=== PATIENT | male | born 1985 | race Caucasian/White ===

== ENCOUNTER 2017-08-15 08:42 | Emergency (ER) | payer OTHER, MEDICAID, SELFPAY ==
[2017-08-15 09:07] VITALS: BP 145/81; PULSE 50; RESP 14; TEMP 36.9; O2SAT 99; BMI 44.7
[2017-08-15 10:16] LABS: Add Manual Diff / Slide Review NO; Basophils Percent Auto 0.5 % (0-2); Eosinophils Percent Auto 6.4 % (2-4); Hemoglobin 12.7 g/dL (13.5-17.5); Mean Corpuscular HGB Conc 34.3 % (30-36); Mean Corpuscular Hemoglobin 27.8 PG (26-34); Mean Corpuscular Volume 81.1 fL (80-100); Monocytes Percent Auto 11.7 % (3-14); Neutrophils Absolute Auto 6700 /uL (3000-5900); Neutrophils Percent Auto 66.4 % (50-75); Platelet Count 211 X10^3/uL (150-400); Red Blood Cell Count 4.57 X10^6/uL (4.5-5.9); Red Cell Distribution Width 15.7 % (11.6-14.8); White Blood Cell Count 10.1 X10^3/uL (4.5-11.0)
[2017-08-15 10:21] LABS: INR 1.1 (0.9-1.3); Prothrombin Time 11.9 SECONDS (10.1-12.7)
[2017-08-15 10:28] LABS: Alanine Aminotransferase 91 IU/L (21-72); Albumin Globulin Ratio 1.3 (1.0-2.8); Alkaline Phosphatase 92 U/L (38-126); Aspartate Aminotransferase 106 IU/L (17-59); BUN Creatinine Ratio 21.7 (6-22); Bilirubin Total 0.5 mg/dL (0.2-1.3); C-Reactive Protein Quant 2.6 mg/dL (<1.0); Calcium 9.1 mg/dL (8.4-10.2); Estimated Glomerular Filt Rate > 60.0 mL/min (>60); Globulin 3.1 g/dL (1.7-4.1); Glucose 109 mg/dL (70-100); HEMOLYSIS < 15 (0-50); Potassium 4.1 mmol/L (3.4-5.1); Sodium 142 mmol/L (137-145); Total Protein 7.1 g/dL (6.3-8.2)
[2017-08-15 10:36] LABS: Erythrocyte Sedimentation Rate 44 MM/HR (0-15)
[2017-08-15 10:45] LABS: Procalcitonin < 0.05 ng/mL (<0.5)
--- NOTE | 2017-08-15 11:47 | ED.LOWEXIN ---
HPI - Extremity Injury (Lower) <Maximiliano Paige MD - Last Filed: 08/15/17 15:42> General Chief Complaint: Extremity Injury, Lower Stated Complaint: swelling in left big toe Time Seen by Provider: 08/15/17 08:51 Source: patient Mode of arrival: ambulatory Limitations: no limitations History of Present Illness HPI Narrative: 31M no sig pmhx presents for R big toe pain worsening since 2 days prior. Has had toe pain for months, and reports history of stepping barefoot on sharp things, but cannot recall specific trauma. Toe has become swollen red and painful in last 2 days. No fever at home. Not diabetic Related Data Home Medications Medication Instructions Recorded Confirmed citalopram 40 mg PO QHS 08/15/17 08/15/17 propranolol 40 mg PO BID 08/15/17 08/15/17 Previous Rx's Medication Instructions Recorded hydrocodone-acetaminophen [[place]] 1 tab PO Q4-6H PRN #10 tab 08/15/17 ibuprofen 800 mg PO Q8H PRN #30 tab 08/15/17 levofloxacin [Levaquin] 750 mg PO DAILY 10 Days tab 08/15/17 Allergies Allergy/AdvReac Type Severity Reaction Status Date / Time tramadol Allergy Mild VIOLENTLY Verified 08/15/17 13:07 ILL Review of Systems <Maximiliano Paige MD - Last Filed: 08/15/17 15:42> Review of Systems Exam <Maximiliano Paige MD - Last Filed: 08/15/17 15:42> Narrative Exam Narrative: Exam: Constitutional - Well appearing, well nourished, NAD EYES - PERRL, EOMI ENT - Moist oral mucosa Cardiovasuclar - Normal rate, rhythm, no murmurs, gallops, rubs Respiratory - Lungs CTA bilaterally, no increased respiratory effort, no accessory muscle use GI - Soft, non tender, non distended, no rebound MSK - No deformity, No CVA tenderness, No peripheral edema. Great toe on R symmetrically edematous and erythematous with fluctuance and white 3x3cm swelling to pad of toe. DP pulse 2+ Skin - No rash, no petechiae Neuro - A&Ox3, moves all extremities. No focal deficits Initial Vital Signs Initial Vital Signs: Vital Signs Temperature 98.4 F 08/15/17 09:07 Pulse Rate 50 L 08/15/17 09:07 Respiratory Rate 14 08/15/17 09:07 Blood Pressure 145/81 H 08/15/17 09:07 Pulse Oximetry 99 08/15/17 09:07 <Hermelinda Mclain PA-C - Last Filed: 08/15/17 13:27> Initial Vital Signs Initial Vital Signs: Vital Signs Temperature 98.4 F 08/15/17 09:07 Pulse Rate 50 L 08/15/17 09:07 Respiratory Rate 14 08/15/17 09:07 Blood Pressure 145/81 H 08/15/17 09:07 Pulse Oximetry 99 08/15/17 09:07 <Hermelinda Mclain PA-C - Last Filed: 08/15/17 13:27> Abscess I/D Site: foot Side (if applicable): left Course <Maximiliano Paige MD - Last Filed: 08/15/17 15:42> Hospital Course: After review of patient's history and exam with Dr. Paige, the left great toe was cleaned with alcohol, anesthetized with 6 cc 1% lidocaine plain via digital block in the usual fashion. The overlying callus was pared down, then a 0.8 cm incision made with a #11 blade into the underlying soft tissue. Malodorous pus drained, approximately 30 cc. Area explored with blunt hemostat and no additional pus drained. An additional 3cc 1% plain lidocaine was used for local anesthesia. Dressing applied Orders Ordered: ED Orders 08/15/17 10:05 C-Reactive Protein Quant Stat Complete Blood Count AUTO DIFF Stat Comprehensive Metabolic Panel Stat Erythrocyte Sedimentation Rate Stat Procalcitonin Stat Prothrombin Time INR Stat 08/15/17 11:46 XR toe LT min 2V Stat Discontinued Medications Hydrocodone Bitart/Acetaminophen ([place] 5/325) 2 tab PO NOW ONE Stop: 08/15/17 13:05 Last Admin: 08/15/17 13:20 Dose: 2 tab Ibuprofen (Advil) 800 mg PO NOW ONE Stop: 08/15/17 13:05 Last Admin: 08/15/17 13:21 Dose: 800 mg Vital Signs - 8 hr 08/15/17 09:07 08/15/17 13:40 Temperature 98.4 F Pulse Rate 50 L 57 L Respiratory Rate 14 18 Blood Pressure 145/81 H Blood Pressure [Right Arm] 165/96 H Pulse Oximetry 99 98 <Hermelinda Mclain PA-C - Last Filed: 08/15/17 13:27> Orders Ordered: ED Orders 08/15/17 10:05 C-Reactive Protein Quant Stat Complete Blood Count AUTO DIFF Stat Comprehensive Metabolic Panel Stat Erythrocyte Sedimentation Rate Stat Procalcitonin Stat Prothrombin Time INR Stat 08/15/17 11:46 XR toe LT min 2V Stat Discontinued Medications Hydrocodone Bitart/Acetaminophen ([place] 5/325) 2 tab PO NOW ONE Stop: 08/15/17 13:05 Last Admin: 08/15/17 13:20 Dose: 2 tab Ibuprofen (Advil) 800 mg PO NOW ONE Stop: 08/15/17 13:05 Last Admin: 08/15/17 13:21 Dose: 800 mg Vital Signs - 8 hr 08/15/17 09:07 08/15/17 13:40 Temperature 98.4 F Pulse Rate 50 L 57 L Respiratory Rate 14 18 Blood Pressure 145/81 H Blood Pressure [Right Arm] 165/96 H Pulse Oximetry 99 98 MDM - Extremity Injury (Lower) <Maximiliano Paige MD - Last Filed: 08/15/17 15:42> Lab Data Result diagrams: 08/15/17 10:05 08/15/17 10:05 Lab Results 08/15/17 08/15/17 08/15/17 Range/Units 10:05 10:05 10:05 WBC 10.1 (4.5-11.0) X10^3/uL RBC 4.57 (4.5-5.9) X10^6/uL Hgb 12.7 L (13.5-17.5) g/dL Hct 37.0 L (41-53) % MCV 81.1 (80-100) fL MCH 27.8 (26-34) PG MCHC 34.3 (30-36) % RDW 15.7 H (11.6-14.8) % Plt Count 211 (150-400) X10^3/uL Neut % (Auto) 66.4 (50-75) % Lymph % (Auto) 15.0 L (25-40) % Norton % (Auto) 11.7 (3-14) % Eos % (Auto) 6.4 H (2-4) % Baso % (Auto) 0.5 (0-2) % Neut # (Auto) 6700 H (5113-8059) /uL ESR 44 H (0-15) MM/HR PT 11.9 (10.1-12.7) SECONDS INR 1.1 (0.9-1.3) Sodium (137-145) mmol/L Potassium (3.4-5.1) mmol/L Chloride (98-107) mmol/L Carbon Dioxide (22-32) mmol/L BUN (9-20) mg/dL Creatinine (0.66-1.25) mg/dL Estimated GFR (>60) mL/min BUN/Creatinine Ratio (6-22) Glucose (70-100) mg/dL Calcium (8.4-10.2) mg/dL Total Bilirubin (0.2-1.3) mg/dL AST (17-59) IU/L ALT (21-72) IU/L Alkaline Phosphatase (38-126) U/L C-Reactive Protein (<1.0) mg/dL Total Protein (6.3-8.2) g/dL Albumin (3.5-5.0) g/dL Globulin (1.7-4.1) g/dL Albumin/Globulin Ratio (1.0-2.8) Procalcitonin < 0.05 (<0.5) ng/mL // Range/Units 10:05 WBC (4.5-11.0) X10^3/uL RBC (4.5-5.9) X10^6/uL Hgb (13.5-17.5) g/dL Hct (41-53) % MCV (80-100) fL MCH (26-34) PG MCHC (30-36) % RDW (11.6-14.8) % Plt Count (150-400) X10^3/uL Neut % (Auto) (50-75) % Lymph % (Auto) (25-40) % Norton % (Auto) (3-14) % Eos % (Auto) (2-4) % Baso % (Auto) (0-2) % Neut # (Auto) (2713-3859) /uL ESR (0-15) MM/HR PT (10.1-12.7) SECONDS INR (0.9-1.3) Sodium 142 (137-145) mmol/L Potassium 4.1 (3.4-5.1) mmol/L Chloride 103.0 (98-107) mmol/L Carbon Dioxide 29.0 (22-32) mmol/L BUN 13.0 (9-20) mg/dL Creatinine 0.60 L (0.66-1.25) mg/dL Estimated GFR > 60.0 (>60) mL/min BUN/Creatinine Ratio 21.7 (6-22) Glucose 109 H (70-100) mg/dL Calcium 9.1 (8.4-10.2) mg/dL Total Bilirubin 0.5 (0.2-1.3) mg/dL AST 106 H (17-59) IU/L ALT 91 H (21-72) IU/L Alkaline Phosphatase 92 (38-126) U/L C-Reactive Protein 2.6 H (<1.0) mg/dL Total Protein 7.1 (6.3-8.2) g/dL Albumin 4.0 (3.5-5.0) g/dL Globulin 3.1 (1.7-4.1) g/dL Albumin/Globulin Ratio 1.3 (1.0-2.8) Procalcitonin (<0.5) ng/mL Imaging Data Foot: Radiologist's impression: Patient: Miki Garcia [facility]#: [id number] : 1985Acct:[id number] Age/Sex: 31 / MDate of Service: 08/15/17 Loc: Accession Number: [id number] Procedure: XR toe LT min 2V Ordering Provider: Maximiliano Paige M.D. PROCEDURE: XR TOE LT MIN 2V INDICATIONS: Great toe infection TECHNIQUE: 3 views of the great toe acquired. COMPARISON: None. FINDINGS: Bones: No fractures or dislocations. No discrete bony erosions. There are hypertrophic changes medially at the 1st interphalangeal joint. Nonspecific periosteal thickening demonstrated within the 1st distal phalanx. There is mild narrowing of the 1st interphalangeal joint medially. Soft tissues: There is focal soft tissue swelling medial to the 1st metatarsophalangeal joint. IMPRESSION: 1. 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 2. Overlying medial soft tissue swelling at the 1st metatarsophalangeal joint without evidence of underlying bony erosions. Mild periosteal thickening in the 1st distal phalanx is nonspecific and reflect sequela of prior trauma but if there is persistent clinical suspicion for osteomyelitis, recommend further evaluation with MRI. Dictated by: Edson Ayala M.D. on 08/15/2017 at 12:32 Approved by: Edson Ayala M.D. on 08/15/2017 at 12:35 [facility] Narrative Medical decision making narrative: Patient has signficant abscess on great toe. ERYN Mclain performed I&D as described above. XR reviewed - no definite osteomyelitis noted. Patient is not febrile, or otherwise immunocompromised. Plan is for outpatient management of infection with follow up. Patient may need follow up MRI if infection does not resolve. Stable for discharge. <Hermelinda Mclain PA-C - Last Filed: 08/15/17 13:27> Lab Data Lab Results 08/15/17 08/15/17 08/15/17 Range/Units 10:05 10:05 10:05 WBC 10.1 (4.5-11.0) X10^3/uL RBC 4.57 (4.5-5.9) X10^6/uL Hgb 12.7 L (13.5-17.5) g/dL Hct 37.0 L (41-53) % MCV 81.1 (80-100) fL MCH 27.8 (26-34) PG MCHC 34.3 (30-36) % RDW 15.7 H (11.6-14.8) % Plt Count 211 (150-400) X10^3/uL Neut % (Auto) 66.4 (50-75) % Lymph % (Auto) 15.0 L (25-40) % Norton % (Auto) 11.7 (3-14) % Eos % (Auto) 6.4 H (2-4) % Baso % (Auto) 0.5 (0-2) % Neut # (Auto) 6700 H (0509-9552) /uL ESR 44 H (0-15) MM/HR PT 11.9 (10.1-12.7) SECONDS INR 1.1 (0.9-1.3) Sodium (137-145) mmol/L Potassium (3.4-5.1) mmol/L Chloride (98-107) mmol/L Carbon Dioxide (22-32) mmol/L BUN (9-20) mg/dL Creatinine (0.66-1.25) mg/dL Estimated GFR (>60) mL/min BUN/Creatinine Ratio (6-22) Glucose (70-100) mg/dL Calcium (8.4-10.2) mg/dL Total Bilirubin (0.2-1.3) mg/dL AST (17-59) IU/L ALT (21-72) IU/L Alkaline Phosphatase (38-126) U/L C-Reactive Protein (<1.0) mg/dL Total Protein (6.3-8.2) g/dL Albumin (3.5-5.0) g/dL Globulin (1.7-4.1) g/dL Albumin/Globulin Ratio (1.0-2.8) Procalcitonin < 0.05 (<0.5) ng/mL 05// Range/Units 10:05 WBC (4.5-11.0) X10^3/uL RBC (4.5-5.9) X10^6/uL Hgb (13.5-17.5) g/dL Hct (41-53) % MCV (80-100) fL MCH (26-34) PG MCHC (30-36) % RDW (11.6-14.8) % Plt Count (150-400) X10^3/uL Neut % (Auto) (50-75) % Lymph % (Auto) (25-40) % Norton % (Auto) (3-14) % Eos % (Auto) (2-4) % Baso % (Auto) (0-2) % Neut # (Auto) (2572-0809) /uL ESR (0-15) MM/HR PT (10.1-12.7) SECONDS INR (0.9-1.3) Sodium 142 (137-145) mmol/L Potassium 4.1 (3.4-5.1) mmol/L Chloride 103.0 (98-107) mmol/L Carbon Dioxide 29.0 (22-32) mmol/L BUN 13.0 (9-20) mg/dL Creatinine 0.60 L (0.66-1.25) mg/dL Estimated GFR > 60.0 (>60) mL/min BUN/Creatinine Ratio 21.7 (6-22) Glucose 109 H (70-100) mg/dL Calcium 9.1 (8.4-10.2) mg/dL Total Bilirubin 0.5 (0.2-1.3) mg/dL AST 106 H (17-59) IU/L ALT 91 H (21-72) IU/L Alkaline Phosphatase 92 (38-126) U/L C-Reactive Protein 2.6 H (<1.0) mg/dL Total Protein 7.1 (6.3-8.2) g/dL Albumin 4.0 (3.5-5.0) g/dL Globulin 3.1 (1.7-4.1) g/dL Albumin/Globulin Ratio 1.3 (1.0-2.8) Procalcitonin (<0.5) ng/mL Discharge Plan Departure Patient Disposition: Home, Self-Care Clinical Impression: Abscess of great toe of left foot Discharge Date/Time: 08/15/17 13:45 Interventions: ED Discharge Assessment Last Done: 08/15/17 13:45 Instructions: DI for Skin Abscess Activity Restrictions/Additional Instructions: This is a severe infection on your toe, and as we talked about, if you have any acutely worsening symptoms or new symptoms such as fever over the weekend you need to get to the closest emergency room. There does not appear to be any bone involvement on your x-ray, however given the longevity of UR infection this is a concern as well and you need close follow-up. Start the antibiotic as soon as you pick it up (I have given you a 10 day supply but you may need a longer course). We want to treat this while we are waiting for wound cultures to come back. Please call your PCP Thursday to arrange for this. It may be helpful for you to see a instrument specialist as well if your PCP thinks needed. Prescriptions: New ibuprofen 800 mg tablet 800 mg PO Q8H PRN (Reason: pain) Qty: 30 RF: 0 hydrocodone-acetaminophen [[place]] 5-325 mg tablet 1 tab PO Q4-6H PRN (Reason: foot pain) Qty: 10 RF: 0 levofloxacin [Levaquin] 750 mg tablet 750 mg PO DAILY 10 Days RF: 0 No Action propranolol 80 mg tablet 40 mg PO BID RF: 0 citalopram 40 mg tablet 40 mg PO QHS RF: 0 Referrals: Milton Ortega [Other]
--- NOTE | 2017-08-15 11:50 | ED_ITS ---
HPI - Extremity Injury (Lower) <Maximiliano Paige MD - Last Filed: 08/15/17 15:42> General Chief Complaint: Extremity Injury, Lower Stated Complaint: swelling in left big toe Time Seen by Provider: 08/15/17 08:51 Source: patient Mode of arrival: ambulatory Limitations: no limitations History of Present Illness HPI Narrative: 31M no sig pmhx presents for R big toe pain worsening since 2 days prior. Has had toe pain for months, and reports history of stepping barefoot on sharp things, but cannot recall specific trauma. Toe has become swollen red and painful in last 2 days. No fever at home. Not diabetic Related Data Home Medications Medication Instructions Recorded Confirmed citalopram 40 mg PO QHS 08/15/17 08/15/17 propranolol 40 mg PO BID 08/15/17 08/15/17 Previous Rx's Medication Instructions Recorded hydrocodone-acetaminophen [[place]] 1 tab PO Q4-6H PRN #10 tab 08/15/17 ibuprofen 800 mg PO Q8H PRN #30 tab 08/15/17 levofloxacin [Levaquin] 750 mg PO DAILY 10 Days tab 08/15/17 Allergies Allergy/AdvReac Type Severity Reaction Status Date / Time tramadol Allergy Mild VIOLENTLY Verified 08/15/17 13:07 ILL Review of Systems <Maximiliano Paige MD - Last Filed: 08/15/17 15:42> Review of Systems Exam <Maximiliano Paige MD - Last Filed: 08/15/17 15:42> Narrative Exam Narrative: Exam: Constitutional - Well appearing, well nourished, NAD EYES - PERRL, EOMI ENT - Moist oral mucosa Cardiovasuclar - Normal rate, rhythm, no murmurs, gallops, rubs Respiratory - Lungs CTA bilaterally, no increased respiratory effort, no accessory muscle use GI - Soft, non tender, non distended, no rebound MSK - No deformity, No CVA tenderness, No peripheral edema. Great toe on R symmetrically edematous and erythematous with fluctuance and white 3x3cm swelling to pad of toe. DP pulse 2+ Skin - No rash, no petechiae Neuro - A&Ox3, moves all extremities. No focal deficits Initial Vital Signs Initial Vital Signs: Vital Signs Temperature 98.4 F 08/15/17 09:07 Pulse Rate 50 L 08/15/17 09:07 Respiratory Rate 14 08/15/17 09:07 Blood Pressure 145/81 H 08/15/17 09:07 Pulse Oximetry 99 08/15/17 09:07 <Hermelinda Mclain PA-C - Last Filed: 08/15/17 13:27> Initial Vital Signs Initial Vital Signs: Vital Signs Temperature 98.4 F 08/15/17 09:07 Pulse Rate 50 L 08/15/17 09:07 Respiratory Rate 14 08/15/17 09:07 Blood Pressure 145/81 H 08/15/17 09:07 Pulse Oximetry 99 08/15/17 09:07 <Hermelinda Mclain PA-C - Last Filed: 08/15/17 13:27> Abscess I/D Site: foot Side (if applicable): left Course <Maximiliano Paige MD - Last Filed: 08/15/17 15:42> Hospital Course: After review of patient's history and exam with Dr. Paige, the left great toe was cleaned with alcohol, anesthetized with 6 cc 1% lidocaine plain via digital block in the usual fashion. The overlying callus was pared down, then a 0.8 cm incision made with a #11 blade into the underlying soft tissue. Malodorous pus drained, approximately 30 cc. Area explored with blunt hemostat and no additional pus drained. An additional 3cc 1% plain lidocaine was used for local anesthesia. Dressing applied Orders Ordered: ED Orders 08/15/17 10:05 C-Reactive Protein Quant Stat Complete Blood Count AUTO DIFF Stat Comprehensive Metabolic Panel Stat Erythrocyte Sedimentation Rate Stat Procalcitonin Stat Prothrombin Time INR Stat 08/15/17 11:46 XR toe LT min 2V Stat Discontinued Medications Hydrocodone Bitart/Acetaminophen ([place] 5/325) 2 tab PO NOW ONE Stop: 08/15/17 13:05 Last Admin: 08/15/17 13:20 Dose: 2 tab Ibuprofen (Advil) 800 mg PO NOW ONE Stop: 08/15/17 13:05 Last Admin: 08/15/17 13:21 Dose: 800 mg Vital Signs - 8 hr 08/15/17 09:07 08/15/17 13:40 Temperature 98.4 F Pulse Rate 50 L 57 L Respiratory Rate 14 18 Blood Pressure 145/81 H Blood Pressure [Right Arm] 165/96 H Pulse Oximetry 99 98 <Hermelinda Mclain PA-C - Last Filed: 08/15/17 13:27> Orders Ordered: ED Orders 08/15/17 10:05 C-Reactive Protein Quant Stat Complete Blood Count AUTO DIFF Stat Comprehensive Metabolic Panel Stat Erythrocyte Sedimentation Rate Stat Procalcitonin Stat Prothrombin Time INR Stat 08/15/17 11:46 XR toe LT min 2V Stat Discontinued Medications Hydrocodone Bitart/Acetaminophen ([place] 5/325) 2 tab PO NOW ONE Stop: 08/15/17 13:05 Last Admin: 08/15/17 13:20 Dose: 2 tab Ibuprofen (Advil) 800 mg PO NOW ONE Stop: 08/15/17 13:05 Last Admin: 08/15/17 13:21 Dose: 800 mg Vital Signs - 8 hr 08/15/17 09:07 08/15/17 13:40 Temperature 98.4 F Pulse Rate 50 L 57 L Respiratory Rate 14 18 Blood Pressure 145/81 H Blood Pressure [Right Arm] 165/96 H Pulse Oximetry 99 98 MDM - Extremity Injury (Lower) <Maximiliano Paige MD - Last Filed: 08/15/17 15:42> Lab Data Result diagrams: 08/15/17 10:05 08/15/17 10:05 Lab Results 08/15/17 08/15/17 08/15/17 Range/Units 10:05 10:05 10:05 WBC 10.1 (4.5-11.0) X10^3/uL RBC 4.57 (4.5-5.9) X10^6/uL Hgb 12.7 L (13.5-17.5) g/dL Hct 37.0 L (41-53) % MCV 81.1 (80-100) fL MCH 27.8 (26-34) PG MCHC 34.3 (30-36) % RDW 15.7 H (11.6-14.8) % Plt Count 211 (150-400) X10^3/uL Neut % (Auto) 66.4 (50-75) % Lymph % (Auto) 15.0 L (25-40) % [place] % (Auto) 11.7 (3-14) % Eos % (Auto) 6.4 H (2-4) % Baso % (Auto) 0.5 (0-2) % Neut # (Auto) 6700 H (2008-7024) /uL ESR 44 H (0-15) MM/HR PT 11.9 (10.1-12.7) SECONDS INR 1.1 (0.9-1.3) Sodium (137-145) mmol/L Potassium (3.4-5.1) mmol/L Chloride (98-107) mmol/L Carbon Dioxide (22-32) mmol/L BUN (9-20) mg/dL Creatinine (0.66-1.25) mg/dL Estimated GFR (>60) mL/min BUN/Creatinine Ratio (6-22) Glucose (70-100) mg/dL Calcium (8.4-10.2) mg/dL Total Bilirubin (0.2-1.3) mg/dL AST (17-59) IU/L ALT (21-72) IU/L Alkaline Phosphatase (38-126) U/L C-Reactive Protein (<1.0) mg/dL Total Protein (6.3-8.2) g/dL Albumin (3.5-5.0) g/dL Globulin (1.7-4.1) g/dL Albumin/Globulin Ratio (1.0-2.8) Procalcitonin < 0.05 (<0.5) ng/mL // Range/Units 10:05 WBC (4.5-11.0) X10^3/uL RBC (4.5-5.9) X10^6/uL Hgb (13.5-17.5) g/dL Hct (41-53) % MCV (80-100) fL MCH (26-34) PG MCHC (30-36) % RDW (11.6-14.8) % Plt Count (150-400) X10^3/uL Neut % (Auto) (50-75) % Lymph % (Auto) (25-40) % [place] % (Auto) (3-14) % Eos % (Auto) (2-4) % Baso % (Auto) (0-2) % Neut # (Auto) (5992-7727) /uL ESR (0-15) MM/HR PT (10.1-12.7) SECONDS INR (0.9-1.3) Sodium 142 (137-145) mmol/L Potassium 4.1 (3.4-5.1) mmol/L Chloride 103.0 (98-107) mmol/L Carbon Dioxide 29.0 (22-32) mmol/L BUN 13.0 (9-20) mg/dL Creatinine 0.60 L (0.66-1.25) mg/dL Estimated GFR > 60.0 (>60) mL/min BUN/Creatinine Ratio 21.7 (6-22) Glucose 109 H (70-100) mg/dL Calcium 9.1 (8.4-10.2) mg/dL Total Bilirubin 0.5 (0.2-1.3) mg/dL AST 106 H (17-59) IU/L ALT 91 H (21-72) IU/L Alkaline Phosphatase 92 (38-126) U/L C-Reactive Protein 2.6 H (<1.0) mg/dL Total Protein 7.1 (6.3-8.2) g/dL Albumin 4.0 (3.5-5.0) g/dL Globulin 3.1 (1.7-4.1) g/dL Albumin/Globulin Ratio 1.3 (1.0-2.8) Procalcitonin (<0.5) ng/mL Imaging Data Foot: Radiologist's impression: Patient: Miki Garcia [facility]#: [id number] : 1985Acct:[id number] Age/Sex: 31 / MDate of Service: 08/15/17 Loc: Accession Number: [id number] Procedure: XR toe LT min 2V Ordering Provider: Maximiliano Paige M.D. PROCEDURE: XR TOE LT MIN 2V INDICATIONS: Great toe infection TECHNIQUE: 3 views of the great toe acquired. COMPARISON: None. FINDINGS: Bones: No fractures or dislocations. No discrete bony erosions. There are hypertrophic changes medially at the 1st interphalangeal joint. Nonspecific periosteal thickening demonstrated within the 1st distal phalanx. There is mild narrowing of the 1st interphalangeal joint medially. Soft tissues: There is focal soft tissue swelling medial to the 1st metatarsophalangeal joint. IMPRESSION: 1. 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 2. Overlying medial soft tissue swelling at the 1st metatarsophalangeal joint without evidence of underlying bony erosions. Mild periosteal thickening in the 1st distal phalanx is nonspecific and reflect sequela of prior trauma but if there is persistent clinical suspicion for osteomyelitis, recommend further evaluation with MRI. Dictated by: Edson Ayala M.D. on 08/15/2017 at 12:32 Approved by: Edson Ayala M.D. on 08/15/2017 at 12:35 [facility] Narrative Medical decision making narrative: Patient has signficant abscess on great toe. ERYN Mclain performed I&D as described above. XR reviewed - no definite osteomyelitis noted. Patient is not febrile, or otherwise immunocompromised. Plan is for outpatient management of infection with follow up. Patient may need follow up MRI if infection does not resolve. Stable for discharge. <Hermelinda Mclain PA-C - Last Filed: 08/15/17 13:27> Lab Data Lab Results 08/15/17 08/15/17 08/15/17 Range/Units 10:05 10:05 10:05 WBC 10.1 (4.5-11.0) X10^3/uL RBC 4.57 (4.5-5.9) X10^6/uL Hgb 12.7 L (13.5-17.5) g/dL Hct 37.0 L (41-53) % MCV 81.1 (80-100) fL MCH 27.8 (26-34) PG MCHC 34.3 (30-36) % RDW 15.7 H (11.6-14.8) % Plt Count 211 (150-400) X10^3/uL Neut % (Auto) 66.4 (50-75) % Lymph % (Auto) 15.0 L (25-40) % [place] % (Auto) 11.7 (3-14) % Eos % (Auto) 6.4 H (2-4) % Baso % (Auto) 0.5 (0-2) % Neut # (Auto) 6700 H (8207-9152) /uL ESR 44 H (0-15) MM/HR PT 11.9 (10.1-12.7) SECONDS INR 1.1 (0.9-1.3) Sodium (137-145) mmol/L Potassium (3.4-5.1) mmol/L Chloride (98-107) mmol/L Carbon Dioxide (22-32) mmol/L BUN (9-20) mg/dL Creatinine (0.66-1.25) mg/dL Estimated GFR (>60) mL/min BUN/Creatinine Ratio (6-22) Glucose (70-100) mg/dL Calcium (8.4-10.2) mg/dL Total Bilirubin (0.2-1.3) mg/dL AST (17-59) IU/L ALT (21-72) IU/L Alkaline Phosphatase (38-126) U/L C-Reactive Protein (<1.0) mg/dL Total Protein (6.3-8.2) g/dL Albumin (3.5-5.0) g/dL Globulin (1.7-4.1) g/dL Albumin/Globulin Ratio (1.0-2.8) Procalcitonin < 0.05 (<0.5) ng/mL 05// Range/Units 10:05 WBC (4.5-11.0) X10^3/uL RBC (4.5-5.9) X10^6/uL Hgb (13.5-17.5) g/dL Hct (41-53) % MCV (80-100) fL MCH (26-34) PG MCHC (30-36) % RDW (11.6-14.8) % Plt Count (150-400) X10^3/uL Neut % (Auto) (50-75) % Lymph % (Auto) (25-40) % [place] % (Auto) (3-14) % Eos % (Auto) (2-4) % Baso % (Auto) (0-2) % Neut # (Auto) (4631-1547) /uL ESR (0-15) MM/HR PT (10.1-12.7) SECONDS INR (0.9-1.3) Sodium 142 (137-145) mmol/L Potassium 4.1 (3.4-5.1) mmol/L Chloride 103.0 (98-107) mmol/L Carbon Dioxide 29.0 (22-32) mmol/L BUN 13.0 (9-20) mg/dL Creatinine 0.60 L (0.66-1.25) mg/dL Estimated GFR > 60.0 (>60) mL/min BUN/Creatinine Ratio 21.7 (6-22) Glucose 109 H (70-100) mg/dL Calcium 9.1 (8.4-10.2) mg/dL Total Bilirubin 0.5 (0.2-1.3) mg/dL AST 106 H (17-59) IU/L ALT 91 H (21-72) IU/L Alkaline Phosphatase 92 (38-126) U/L C-Reactive Protein 2.6 H (<1.0) mg/dL Total Protein 7.1 (6.3-8.2) g/dL Albumin 4.0 (3.5-5.0) g/dL Globulin 3.1 (1.7-4.1) g/dL Albumin/Globulin Ratio 1.3 (1.0-2.8) Procalcitonin (<0.5) ng/mL Discharge Plan Departure Patient Disposition: Home, Self-Care Clinical Impression: Abscess of great toe of left foot Discharge Date/Time: 08/15/17 13:45 Interventions: ED Discharge Assessment Last Done: 08/15/17 13:45 Instructions: DI for Skin Abscess Activity Restrictions/Additional Instructions: This is a severe infection on your toe, and as we talked about, if you have any acutely worsening symptoms or new symptoms such as fever over the weekend you need to get to the closest emergency room. There does not appear to be any bone involvement on your x-ray, however given the longevity of UR infection this is a concern as well and you need close follow-up. Start the antibiotic as soon as you pick it up (I have given you a 10 day supply but you may need a longer course). We want to treat this while we are waiting for wound cultures to come back. Please call your PCP Thursday to arrange for this. It may be helpful for you to see a position classification specialist as well if your PCP thinks needed. Prescriptions: New ibuprofen 800 mg tablet 800 mg PO Q8H PRN (Reason: pain) Qty: 30 RF: 0 hydrocodone-acetaminophen [[place]] 5-325 mg tablet 1 tab PO Q4-6H PRN (Reason: foot pain) Qty: 10 RF: 0 levofloxacin [Levaquin] 750 mg tablet 750 mg PO DAILY 10 Days RF: 0 No Action propranolol 80 mg tablet 40 mg PO BID RF: 0 citalopram 40 mg tablet 40 mg PO QHS RF: 0 Referrals: Milton Ortega [Other]
[2017-08-15] MEDS: HYDROCODONE/ACET 5/325 TABLET 2 TAB PO (13:20)
[2017-08-15] MEDS: IBUPROFEN 400 MG TABLET 800 MG PO (13:21)
--- NOTE | 2017-08-15 13:38 | PC.NURSE ---
bacitracin, telfa, 4x4, and barbara dressing applied
[2017-08-15 13:40] VITALS: BP 165/96; PULSE 57; RESP 18; O2SAT 98
== END 2017-08-15 13:45 | disposition home or self-care (01) ==
PROVIDERS: Student in an Organized Health Care Education/Training Program; Emergency Provider Internal Medicine
DX: L02.612 Cutaneous abscess of left foot (principal)
CPT/HCPCS: 36415; 73660; 80053; 84145; 85025; 85610; 85651; 86140; 99283

== ENCOUNTER 2018-11-03 10:11 | Emergency (ER) | payer OTHER, MEDICAID, SELFPAY ==
--- NOTE | 2018-11-03 10:17 | DI.RAD.S_ITS ---
PROCEDURE: XR CHEST 1V INDICATIONS: chest pain TECHNIQUE: One view of the chest was acquired. COMPARISON: [facility], , CHEST 2 VIEW, 05/22/2013, 2:15. FINDINGS: Surgical changes and devices: None. Lungs and pleura: Lungs are clear. No pleural effusions or pneumothorax. Mediastinum: Mediastinal contours appear normal. Heart size is normal. Bones and chest wall: No suspicious bony lesions. Overlying soft tissues appear unremarkable. IMPRESSION: No acute cardiopulmonary abnormalities. Dictated by: Edwardo Jang M.D. on 11/03/2018 at 10:39 Approved by: Edwardo Jang M.D. on 11/03/2018 at 10:40
--- NOTE | 2018-11-03 10:18 | ED.CHESTPAIN ---
HPI - Chest Pain General Chief Complaint: Arrhythmia/Palpitations Stated Complaint: somethings wrong with my heart Time Seen by Provider: 11/03/18 10:16 Source: patient and old records reviewed Mode of arrival: ambulatory Limitations: no limitations History of Present Illness HPI narrative: Patient is a 33-year-old male with history of anxiety presenting with heart palpitations and chest pain. He says he was seen [facility] at [facility] twice for this this week he was given a prescription of Ativan he says he took all 10 pills and 1 day and did not feel like it was helping. He takes propranolol and duloxetine for anxiety. He has appointment with his PCP tomorrow. He is not sure what really bring these on. But he feels like his heart is skipping a beat. he denies any dizziness or lightheadedness. MD complaint: chest pain Duration: constant Related Data Home Medications Medication Instructions Recorded Confirmed propranolol 40 mg PO BID 08/15/17 11/03/18 clonazepam 0.5 mg PO PRN PRN 11/03/18 11/03/18 duloxetine 30 mg PO QPM 11/03/18 11/03/18 duloxetine 60 mg PO QAM 11/03/18 11/03/18 Allergies Allergy/AdvReac Type Severity Reaction Status Date / Time tramadol Allergy Mild VIOLENTLY Verified 08/15/17 13:07 ILL Review of Systems Review of Systems GENERAL: Denies chills, fatigue, malaise, fever, sweats, travel HEENT: Denies sinus pain, ear pain, sore throat, difficulty swallowing, neck pain RESPIRATORY: Denies dyspnea, cough, wheezing, hemoptysis, sputum. CARDIOVASCULAR: See HPI GASTROINTESTINAL: Denies nausea, vomiting, abdominal pain, diarrhea, constipation, melena. : Denies dysuria, frequency, incontinence, hematuria, urinary retention, flank pain. MUSCULOSKELETAL: Denies weakness, joint pain, or bony pain SKIN: No rash, no erythema, no pruritus NEUROLOGIC: Denies weakness, dizziness, headache, numbness, change in speech, confusion PSYCHIATRIC: No concerning psychosocial issues. 12 point review of systems is negative except for those stated above and HPI [facility] Medical History (Updated 11/03/18 @ 18:10 by Arlyn Kay DO) Anxiety (Acute) Depression (Acute) PTSD (post-traumatic stress disorder) (Acute) Social History Smoking Status: Current every day smoker Social History Smoking Status: Current every day smoker Exam Initial Vital Signs Initial Vital Signs: Vital Signs Temperature 98.7 F 11/03/18 10:28 Pulse Rate 65 11/03/18 10:28 Respiratory Rate 18 11/03/18 10:28 Blood Pressure 139/73 11/03/18 10:28 Pulse Oximetry 100 11/03/18 10:28 GENERAL: Overweight male anxious HEENT: Head atraumatic,EOMI, pupils reactive, face symmetric CARDIOVASCULAR: Regular rate and rhythm without murmurs, rubs or gallops. RESPIRATORY: Breath sounds equal bilaterally, no wheezes rales or rhonchi. ABDOMEN: Soft, nontender. Normoactive bowel sounds all 4 quadrants. No guarding or rebound. : No CVA tenderness EXTREMITIES: Normal range of motion, no clubbing or edema. Neurovascularly intact. Regular pulse. NEUROLOGICAL: Alert and oriented x4.Normal gait and speech. Cranial nerves II through XII grossly intact. SKIN: Warm, dry, no laceration, no petechiae, no rashes or lesions. Course Orders Ordered: ED Orders 11/03/18 10:15 EKG-12 Lead Stat 11/03/18 10:17 XR chest 1V Stat 11/03/18 10:30 Complete Blood Count AUTO DIFF Stat Comprehensive Metabolic Panel Stat Lipase Stat Partial Thromboplastin Time Stat Prothrombin Time INR Stat Troponin & CK Cardiac Panel Stat 11/03/18 11:14 Urine Microscopic Stat 11/03/18 13:31 Creatine Kinase Stat Troponin I Stat Discontinued Medications Aspirin (Aspirin Chew) 324 mg PO NOW ONE Stop: 11/03/18 10:17 Last Admin: 11/03/18 10:44 Dose: 324 mg Sodium Chloride (Normal Saline 0.9%) 1,000 mls @ 1,000 mls/hr IV BOLUS ONE Stop: 11/03/18 12:06 Last Infusion: 11/03/18 13:44 Dose: 0 mls/hr Admin: 11/03/18 11:55 Dose: 1,000 mls/hr Vital Signs - 8 hr 11/03/18 10:28 11/03/18 11:00 11/03/18 12:00 Temperature 98.7 F Pulse Rate 65 57 L 57 L Respiratory Rate 18 Blood Pressure 139/73 Blood Pressure [Right Arm] 127/82 145/80 H Pulse Oximetry 100 99 99 11/03/18 13:00 11/03/18 13:32 11/03/18 14:01 Temperature Pulse Rate 56 L 56 L 60 Respiratory Rate 14 16 Blood Pressure Blood Pressure [Right Arm] 136/78 140/76 129/67 Pulse Oximetry 99 100 100 MDM - Chest Pain Lab Data Attestation: I reviewed the patient's lab results. Result diagrams: 11/03/18 10:30 11/03/18 10:30 Lab Results 11/03/18 11/03/18 11/03/18 Range/Units 10:30 10:30 10:30 WBC 15.8 H (4.5-11.0) X10^3/uL RBC 5.08 (4.5-5.9) X10^6/uL Hgb 14.5 (13.5-17.5) g/dL Hct 42.9 (41-53) % MCV 84.4 (80-100) fL MCH 28.5 (26-34) PG MCHC 33.8 (30-36) % RDW 13.9 (11.6-14.8) % Plt Count 272 (150-400) X10^3/uL Neut % (Auto) 73.6 (50-75) % Lymph % (Auto) 12.9 L (25-40) % [place] % (Auto) 8.1 (3-14) % Eos % (Auto) 4.4 H (2-4) % Baso % (Auto) 1.0 (0-2) % Neut # (Auto) 62939 H (7274-0998) /uL Lymph # (Auto) 2000 (3922-0376) /uL [place] # (Auto) 1300 H (0-900) /uL Eos # (Auto) 700 H (0-450) /uL Baso # (Auto) 200 H (0-100) /uL PT 10.9 (10.1-12.7) SECONDS INR 1.0 (0.9-1.3) APTT 37 H (26.4-36.2) SECONDS Sodium 139 (137-145) mmol/L Potassium 4.3 (3.4-5.1) mmol/L Chloride 102 (98-107) mmol/L Carbon Dioxide 26 (22-32) mmol/L BUN 15 (9-20) mg/dL Creatinine 0.70 (0.66-1.25) mg/dL Estimated GFR > 60.0 (>60) mL/min BUN/Creatinine Ratio 21.4 (6-22) Glucose 95 (70-100) mg/dL Calcium 9.9 (8.4-10.2) mg/dL Total Bilirubin 0.4 (0.2-1.3) mg/dL AST 51 (17-59) IU/L ALT 50 (21-72) IU/L Alkaline Phosphatase 74 (38-126) U/L Total Creatine Kinase 1248 H (55-170) U/L CK-MB (CK-2) 21.50 H (<2.37) ng/mL CK-MB (CK-2) Rel Index 1.7 (1.5-5.0) % Troponin I < 0.012 (0.01-0.034) ng/mL Total Protein 8.1 (6.3-8.2) g/dL Albumin 4.7 (3.5-5.0) g/dL Globulin 3.4 (1.7-4.1) g/dL Albumin/Globulin Ratio 1.4 (1.0-2.8) Lipase 101 (23-300) U/L Urine RBC (0-5/HPF) Urine WBC (0-5/HPF) Ur Squamous Epith Cells (0-5/HPF) Urine Bacteria (None) Ur Culture Indicated? 11/03/18 11/03/18 Range/Units 11:14 13:31 WBC (4.5-11.0) X10^3/uL RBC (4.5-5.9) X10^6/uL Hgb (13.5-17.5) g/dL Hct (41-53) % MCV (80-100) fL MCH (26-34) PG MCHC (30-36) % RDW (11.6-14.8) % Plt Count (150-400) X10^3/uL Neut % (Auto) (50-75) % Lymph % (Auto) (25-40) % [place] % (Auto) (3-14) % Eos % (Auto) (2-4) % Baso % (Auto) (0-2) % Neut # (Auto) (8672-5040) /uL Lymph # (Auto) (3080-9430) /uL [place] # (Auto) (0-900) /uL Eos # (Auto) (0-450) /uL Baso # (Auto) (0-100) /uL PT (10.1-12.7) SECONDS INR (0.9-1.3) APTT (26.4-36.2) SECONDS Sodium (137-145) mmol/L Potassium (3.4-5.1) mmol/L Chloride (98-107) mmol/L Carbon Dioxide (22-32) mmol/L BUN (9-20) mg/dL Creatinine (0.66-1.25) mg/dL Estimated GFR (>60) mL/min BUN/Creatinine Ratio (6-22) Glucose (70-100) mg/dL Calcium (8.4-10.2) mg/dL Total Bilirubin (0.2-1.3) mg/dL AST (17-59) IU/L ALT (21-72) IU/L Alkaline Phosphatase (38-126) U/L Total Creatine Kinase 1093 H (55-170) U/L CK-MB (CK-2) (<2.37) ng/mL CK-MB (CK-2) Rel Index (1.5-5.0) % Troponin I < 0.012 (0.01-0.034) ng/mL Total Protein (6.3-8.2) g/dL Albumin (3.5-5.0) g/dL Globulin (1.7-4.1) g/dL Albumin/Globulin Ratio (1.0-2.8) Lipase (23-300) U/L Urine RBC None seen (0-5/HPF) Urine WBC 0-1/hpf (0-5/HPF) Ur Squamous Epith Cells 0-1 /hpf (0-5/HPF) Urine Bacteria None seen (None) Ur Culture Indicated? Cult not indicated Urine Dip Bedside Urine Glucose Negative Bedside Urine Bilirubin - Negative Bedside Urine Ketone + 15 Urine Specific [place] 1.020 Bedside Urine Occult Blood - Negative Bedside Urine pH 6.5 Bedside Urine Protein +/- 15 Bedside Urine Urobilinogen +/- 1mg Bedside Urine Nitrite - Negative Bedside Urine Leukocytes - Negative Esterase ECG Data Attestation: I personally reviewed and interpreted this ECG as follows: Prior ECG tracings: not available for review MDM Narrative Medical decision making narrative: Patient's CPK noted to be slightly elevated at 1200. He states he has not have any muscle aches or body aches. He actually does not have any blood in his urine. He denies any excessive exercise he states he has been on the Keto diet for the last 4 months. Repeat troponin and CPK have improved. Patient has no symptoms of rhabdomyolysis. I recommend he increase his fluid intake and follow up with his PCP we scheduled to see tomorrow. Recommend long-term anxiety medication needs to be changed. Discharge Plan Departure Patient Disposition: Home Clinical Impression: Palpitations, Elevated CPK Discharge Date/Time: 11/03/18 14:27 Interventions: ED Discharge Assessment Last Done: 11/03/18 14:27 Instructions: DI for Palpitations Activity Restrictions/Additional Instructions: *You have been diagnosed with elevated CPK and palpitation *What to do: At this time You need to discuss with her PCP your duloxetine medication. This may need to be switched. You also have a mildly elevated CPK which is muscle breakdown. It has improved however I recommend to continue to increase her fluid intake to help flush it out of your system. *Continue to take medications as directed *Follow up with your primary care provider in 2-3 days *Return to ER if you should have increasing chest pain body a, weakness, dizziness, passing out [or] any new, worsening or concerning symptoms Prescriptions: No Action clonazepam 0.5 mg tablet 0.5 mg PO PRN PRN (Reason: Panic Attack(S)) RF: 0 duloxetine 30 mg capsule,delayed release(DR/EC) 60 mg PO QAM RF: 0 duloxetine 30 mg capsule,delayed release(DR/EC) 30 mg PO QPM RF: 0 propranolol 80 mg tablet 40 mg PO BID RF: 0
--- NOTE | 2018-11-03 10:22 | ED_ITS ---
HPI - Chest Pain General Chief Complaint: Arrhythmia/Palpitations Stated Complaint: somethings wrong with my heart Time Seen by Provider: 11/03/18 10:16 Source: patient and old records reviewed Mode of arrival: ambulatory Limitations: no limitations History of Present Illness HPI narrative: Patient is a 33-year-old male with history of anxiety presenting with heart palpitations and chest pain. He says he was seen over at [facility] twice for this this week he was given a prescription of Ativan he says he took all 10 pills and 1 day and did not feel like it was helping. He takes propranolol and duloxetine for anxiety. He has appointment with his PCP tomorrow. He is not sure what really bring these on. But he feels like his heart is skipping a beat. he denies any dizziness or lightheadedness. MD complaint: chest pain Duration: constant Related Data Home Medications Medication Instructions Recorded Confirmed propranolol 40 mg PO BID 08/15/17 11/03/18 clonazepam 0.5 mg PO PRN PRN 11/03/18 11/03/18 duloxetine 30 mg PO QPM 11/03/18 11/03/18 duloxetine 60 mg PO QAM 11/03/18 11/03/18 Allergies Allergy/AdvReac Type Severity Reaction Status Date / Time tramadol Allergy Mild VIOLENTLY Verified 08/15/17 13:07 ILL Review of Systems Review of Systems GENERAL: Denies chills, fatigue, malaise, fever, sweats, travel HEENT: Denies sinus pain, ear pain, sore throat, difficulty swallowing, neck pain RESPIRATORY: Denies dyspnea, cough, wheezing, hemoptysis, sputum. CARDIOVASCULAR: See HPI GASTROINTESTINAL: Denies nausea, vomiting, abdominal pain, diarrhea, const ipation, melena. : Denies dysuria, frequency, incontinence, hematuria, urinary retention, flank pain. MUSCULOSKELETAL: Denies weakness, joint pain, or bony pain SKIN: No rash, no erythema, no pruritus NEUROLOGIC: Denies weakness, dizziness, headache, numbness, change in speech, confusion PSYCHIATRIC: No concerning psychosocial issues. 12 point review of systems is negative except for those stated above and HPI [facility] Medical History (Updated 11/03/18 @ 18:10 by Arlyn Kay DO) Anxiety (Acute) Depression (Acute) PTSD (post-traumatic stress disorder) (Acute) Social History Smoking Status: Current every day smoker Social History Smoking Status: Current every day smoker Exam Initial Vital Signs Initial Vital Signs: Vital Signs Temperature 98.7 F 11/03/18 10:28 Pulse Rate 65 11/03/18 10:28 Respiratory Rate 18 11/03/18 10:28 Blood Pressure 139/73 11/03/18 10:28 Pulse Oximetry 100 11/03/18 10:28 GENERAL: Overweight male anxious HEENT: Head atraumatic,EOMI, pupils reactive, face symmetric CARDIOVASCULAR: Regular rate and rhythm without murmurs, rubs or gallops. RESPIRATORY: Breath sounds equal bilaterally, no wheezes rales or rhonchi. ABDOMEN: Soft, nontender. Normoactive bowel sounds all 4 quadrants. No guarding or rebound. : No CVA tenderness EXTREMITIES: Normal range of motion, no clubbing or edema. Neurovascularly intact. Regular pulse. NEUROLOGICAL: Alert and oriented x4.Normal gait and speech. Cranial nerves II through XII grossly intact. SKIN: Warm, dry, no laceration, no petechiae, no rashes or lesions. Course Orders Ordered: ED Orders 11/03/18 10:15 EKG-12 Lead Stat 11/03/18 10:17 XR chest 1V Stat 11/03/18 10:30 Complete Blood Count AUTO DIFF Stat Comprehensive Metabolic Panel Stat Lipase Stat Partial Thromboplastin Time Stat Prothrombin Time INR Stat Troponin & CK Cardiac Panel Stat 11/03/18 11:14 Urine Microscopic Stat 11/03/18 13:31 Creatine Kinase Stat Troponin I Stat Discontinued Medications Aspirin (Aspirin Chew) 324 mg PO NOW ONE Stop: 11/03/18 10:17 Last Admin: 11/03/18 10:44 Dose: 324 mg Sodium Chloride (Normal Saline 0.9%) 1,000 mls @ 1,000 mls/hr IV BOLUS ONE Stop: 11/03/18 12:06 Last Infusion: 11/03/18 13:44 Dose: 0 mls/hr Admin: 11/03/18 11:55 Dose: 1,000 mls/hr Vital Signs - 8 hr 11/03/18 10:28 11/03/18 11:00 11/03/18 12:00 Temperature 98.7 F Pulse Rate 65 57 L 57 L Respiratory Rate Blood Pressure 139/73 Blood Pressure [Right Arm] 127/82 145/80 H Pulse Oximetry 100 99 99 11/03/18 13:00 11/03/18 13:32 11/03/18 14:01 Temperature Pulse Rate 56 L 56 L 60 Respiratory Rate 14 16 Blood Pressure Blood Pressure [Right Arm] 136/78 140/76 129/67 Pulse Oximetry 99 100 100 MDM - Chest Pain Lab Data Attestation: I reviewed the patient's lab results. Result diagrams: 11/03/18 10:30 11/03/18 10:30 Lab Results 11/03/18 11/03/18 11/03/18 Range/Units 10:30 10:30 10:30 WBC 15.8 H (4.5-11.0) X10^3/uL RBC 5.08 (4.5-5.9) X10^6/uL Hgb 14.5 (13.5-17.5) g/dL Hct 42.9 (41-53) % MCV 84.4 (80-100) fL MCH 28.5 (26-34) PG MCHC 33.8 (30-36) % RDW 13.9 (11.6-14.8) % Plt Count 272 (150-400) X10^3/uL Neut % (Auto) 73.6 (50-75) % Lymph % (Auto) 12.9 L (25-40) % Cass % (Auto) 8.1 (3-14) % Eos % (Auto) 4.4 H (2-4) % Baso % (Auto) 1.0 (0-2) % Neut # (Auto) 78773 H (6940-8753) /uL Lymph # (Auto) 2000 (5610-6140) /uL Cass # (Auto) 1300 H (0-900) /uL Eos # (Auto) 700 H (0-450) /uL Baso # (Auto) 200 H (0-100) /uL PT 10.9 (10.1-12.7) SECONDS INR 1.0 (0.9-1.3) APTT 37 H (26.4-36.2) SECONDS Sodium 139 (137-145) mmol/L Potassium 4.3 (3.4-5.1) mmol/L Chloride 102 (98-107) mmol/L Carbon Dioxide 26 (22-32) mmol/L BUN 15 (9-20) mg/dL Creatinine 0.70 (0.66-1.25) mg/dL Estimated GFR > 60.0 (>60) mL/min BUN/Creatinine Ratio 21.4 (6-22) Glucose 95 (70-100) mg/dL Calcium 9.9 (8.4-10.2) mg/dL Total Bilirubin 0.4 (0.2-1.3) mg/dL AST 51 (17-59) IU/L ALT 50 (21-72) IU/L Alkaline Phosphatase 74 (38-126) U/L Total Creatine Kinase 1248 H (55-170) U/L CK-MB (CK-2) 21.50 H (<2.37) ng/mL CK-MB (CK-2) Rel Index 1.7 (1.5-5.0) % Troponin I < 0.012 (0.01-0.034) ng/mL Total Protein 8.1 (6.3-8.2) g/dL Albumin 4.7 (3.5-5.0) g/dL Globulin 3.4 (1.7-4.1) g/dL Albumin/Globulin Ratio 1.4 (1.0-2.8) Lipase 101 (23-300) U/L Urine RBC (0-5/HPF) Urine WBC (0-5/HPF) Ur Squamous Epith Cells (0-5/HPF) Urine Bacteria (None) Ur Culture Indicated? 11/03/18 11/03/18 Range/Units 11:14 13:31 WBC (4.5-11.0) X10^3/uL RBC (4.5-5.9) X10^6/uL Hgb (13.5-17.5) g/dL Hct (41-53) % MCV (80-100) fL MCH (26-34) PG MCHC (30-36) % RDW (11.6-14.8) % Plt Count (150-400) X10^3/uL Neut % (Auto) (50-75) % Lymph % (Auto) (25-40) % Cass % (Auto) (3-14) % Eos % (Auto) (2-4) % Baso % (Auto) (0-2) % Neut # (Auto) (4310-3132) /uL Lymph # (Auto) (6849-8559) /uL Cass # (Auto) (0-900) /uL Eos # (Auto) (0-450) /uL Baso # (Auto) (0-100) /uL PT (10.1-12.7) SECONDS INR (0.9-1.3) APTT (26.4-36.2) SECONDS Sodium (137-145) mmol/L Potassium (3.4-5.1) mmol/L Chloride (98-107) mmol/L Carbon Dioxide (22-32) mmol/L BUN (9-20) mg/dL Creatinine (0.66-1.25) mg/dL Estimated GFR (>60) mL/min BUN/Creatinine Ratio (6-22) Glucose (70-100) mg/dL Calcium (8.4-10.2) mg/dL Total Bilirubin (0.2-1.3) mg/dL AST (17-59) IU/L ALT (21-72) IU/L Alkaline Phosphatase (38-126) U/L Total Creatine Kinase 1093 H (55-170) U/L CK-MB (CK-2) (<2.37) ng/mL CK-MB (CK-2) Rel Index (1.5-5.0) % Troponin I < 0.012 (0.01-0.034) ng/mL Total Protein (6.3-8.2) g/dL Albumin (3.5-5.0) g/dL Globulin (1.7-4.1) g/dL Albumin/Globulin Ratio (1.0-2.8) Lipase (23-300) U/L Urine RBC None seen (0-5/HPF) Urine WBC 0-1/hpf (0-5/HPF) Ur Squamous Epith Cells 0-1 /hpf (0-5/HPF) Urine Bacteria None seen (None) Ur Culture Indicated? Cult not indicated Urine Dip Bedside Urine Glucose Negative Bedside Urine Bilirubin - Negative Bedside Urine Ketone + 15 Urine Specific [place] 1.020 Bedside Urine Occult Blood - Negative Bedside Urine pH 6.5 Bedside Urine Protein +/- 15 Bedside Urine Urobilinogen +/- 1mg Bedside Urine Nitrite - Negative Bedside Urine Leukocytes - Negative Esterase ECG Data Attestation: I personally reviewed and interpreted this ECG as follows: Prior ECG tracings: not available for review MDM Narrative Medical decision making narrative: Patient's CPK noted to be slightly elevated at 1200. He states he has not have any muscle aches or body aches. He actually does not have any blood in his urine. He denies any excessive exercise he states he has been on the Keto diet for the last 4 months. Repeat troponin and CPK have improved. Patient has no symptoms of rhabdomyolysis. I recommend he increase his fluid intake and follow up with his PCP we scheduled to see tomorrow. Recommend long-term anxiety medication needs to be changed. Discharge Plan Departure Patient Disposition: Home Clinical Impression: Palpitations, Elevated CPK Discharge Date/Time: 11/03/18 14:27 Interventions: ED Discharge Assessment Last Done: 11/03/18 14:27 Instructions: DI for Palpitations Activity Restrictions/Additional Instructions: *You have been diagnosed with elevated CPK and palpitation *What to do: At this time You need to discuss with her PCP your duloxetine medication. This may need to be switched. You also have a mildly elevated CPK which is muscle breakdown. It has improved however I recommend to continue to increase her fluid intake to help flush it out of your system. *Continue to take medications as directed *Follow up with your primary care provider in 2-3 days *Return to ER if you should have increasing chest pain body a, weakness, dizziness, passing out [or] any new, worsening or concerning symptoms Prescriptions: No Action clonazepam 0.5 mg tablet 0.5 mg PO PRN PRN (Reason: Panic Attack(S)) RF: 0 duloxetine 30 mg capsule,delayed release(DR/EC) 60 mg PO QAM RF: 0 duloxetine 30 mg capsule,delayed release(DR/EC) 30 mg PO QPM RF: 0 propranolol 80 mg tablet 40 mg PO BID RF: 0
[2018-11-03 10:28] VITALS: BP 139/73; PULSE 65; RESP 18; TEMP 37.1; O2SAT 100; BMI 40.6
[2018-11-03 10:44] LABS: Add Manual Diff / Slide Review NO; Basophils Absolute Auto 200 /uL (0-100); Eosinophils Absolute Auto 700 /uL (0-450); Eosinophils Percent Auto 4.4 % (2-4); Hematocrit 42.9 % (41-53); Hemoglobin 14.5 g/dL (13.5-17.5); Lymphocytes Absolute Auto 2000 /uL (1100-4500); Lymphocytes Percent Auto 12.9 % (25-40); Mean Corpuscular HGB Conc 33.8 % (30-36); Mean Corpuscular Hemoglobin 28.5 PG (26-34); Mean Corpuscular Volume 84.4 fL (80-100); Monocytes Absolute Auto 1300 /uL (0-900); Monocytes Percent Auto 8.1 % (3-14); Neutrophils Absolute Auto 11600 /uL (1500-7000); Neutrophils Percent Auto 73.6 % (50-75); Platelet Count 272 X10^3/uL (150-400); Red Blood Cell Count 5.08 X10^6/uL (4.5-5.9); Red Cell Distribution Width 13.9 % (11.6-14.8); White Blood Cell Count 15.8 X10^3/uL (4.5-11.0)
[2018-11-03] MEDS: ASPIRIN 81 MG TAB 324 MG PO (10:44)
[2018-11-03 10:52] LABS: Prothrombin Time 10.9 SECONDS (10.1-12.7)
[2018-11-03 10:55] LABS: PTT Partial Thromboplastin Tim 37 SECONDS (26.4-36.2)
[2018-11-03 10:57] LABS: Alanine Aminotransferase 50 IU/L (21-72); Albumin 4.7 g/dL (3.5-5.0); Albumin Globulin Ratio 1.4 (1.0-2.8); Alkaline Phosphatase 74 U/L (38-126); Aspartate Aminotransferase 51 IU/L (17-59); BUN Creatinine Ratio 21.4 (6-22); Bilirubin Total 0.4 mg/dL (0.2-1.3); Blood Urea Nitrogen 15 mg/dL (9-20); Calcium 9.9 mg/dL (8.4-10.2); Carbon Dioxide 26 mmol/L (22-32); Chloride 102 mmol/L (98-107); Creatine Kinase 1248 U/L (55-170); Estimated Glomerular Filt Rate > 60.0 mL/min (>60); Globulin 3.4 g/dL (1.7-4.1); Glucose 95 mg/dL (70-100); HEMOLYSIS 17 (0-50); Lipase 101 U/L (23-300); Potassium 4.3 mmol/L (3.4-5.1); Sodium 139 mmol/L (137-145); Total Protein 8.1 g/dL (6.3-8.2)
[2018-11-03 11:00] VITALS: BP 127/82; PULSE 57; RESP 19; O2SAT 99
[2018-11-03 11:08] LABS: Troponin I < 0.012 ng/mL (0.01-0.034)
[2018-11-03 11:12] LABS: CKMB % Relative Index 1.7 % (1.5-5.0)
[2018-11-03] MEDS: SODIUM CHLORIDE 0.9% 1,000 ML 1000 ML IV (11:55)
[2018-11-03 12:00] VITALS: BP 145/80; PULSE 57; RESP 17; O2SAT 99
[2018-11-03 12:53] LABS: Bacteria Urine None Seen; RBC Urine None Seen (0-5/HPF)
[2018-11-03 13:00] VITALS: BP 136/78; PULSE 56; RESP 14; O2SAT 99
[2018-11-03 13:14] LABS: Culture Indicated Urine Cult Not Indicated; Squamous Epithelial Cell Urine 0-1 /HPF (0-5/HPF); WBC Urine 0-1/HPF (0-5/HPF)
[2018-11-03 13:32] VITALS: BP 140/76; PULSE 56; O2SAT 100
[2018-11-03 13:48] LABS: Creatine Kinase 1093 U/L (55-170)
[2018-11-03 14:01] VITALS: BP 129/67; PULSE 60; RESP 16; O2SAT 100
[2018-11-03 14:01] LABS: Troponin I < 0.012 ng/mL (0.01-0.034)
== END 2018-11-03 14:27 | disposition home or self-care (01) ==
PROVIDERS: Emergency Provider Emergency Medicine
DX: R00.2 Palpitations (principal); R74.8 Abnormal levels of other serum enzymes
CPT/HCPCS: 36415; 36591; 71045; 80053; 81003; 81015; 82550; 82553; 83690; 84484; 85025; 85610; 85730; 93005; 93010; 96360; 96361; 99284; 99285